=== PATIENT | male | born 1985 | race Hispanic/Latino ===

== ENCOUNTER 2020-07-02 00:06 | Emergency (ER) | payer SELFPAY ==
--- NOTE | ~2020-07-02 | CT_ITS ---
EXAMINATION: CT brain wo con DATE: 07/02/2020 02:01 INDICATION: Headache. Left posterior scalp swelling. TECHNIQUE: Computed tomography (CT) of the head was performed without intravenous contrast. The mA wa s adjusted according to patient size. Iterative reconstruction technique was employed. The dose-lengt h product was 605.33 mGy-cm. COMPARISON: None FINDINGS: There is no intracranial hemorrhage, acute infarction, or abnormal intracranial mass lesion . The ventricles are normal in size. There is mild mucosal thickening in the paranasal sinuses. The m astoid air cells are normal. There is a left posterior scalp soft tissue swelling. IMPRESSION: 1. Normal brain. Reviewed, dictated and finalized at location A. IMPRESSION: 1. Normal brain.
[2020-07-02 00:11] VITALS: BP 165/103; PULSE 72; RESP 20; TEMP 36.4; O2SAT 99
[2020-07-02] MEDS: ONDANSETRON INJ 4 MG/2 ML VIAL IV PUSH (01:01)
[2020-07-02] MEDS: KETOROLAC 30 MG/ML VIAL (*BKC) IV PUSH (01:01)
[2020-07-02] MEDS: SODIUM CHLORIDE 0.9% IV 1,000 ML 999 ML IV CONT ×3 (01:01→04:45)
[2020-07-02 01:02] LABS: Glucose Point of Care > 500 (65-105)
[2020-07-02 01:05] LABS: Basophils Percent Auto 0.5 % (0.2-1.2); Eosinophils Absolute Auto 0.1 K/mm3 (0-0.3); Eosinophils Percent Auto 1.1 % (0-4.4); Hematocrit 42.3 % (42.0-52.0); Hemoglobin 14.2 g/dL (14.0-18.0); Immature Granulocyte Absolute 0.02 K/mm3 (0.00-0.031); Immature Granulocyte Percent A 0.2 % (0-0.5); Lymphocytes Absolute Auto 2.54 K/mm3 (0.9-3.2); Lymphocytes Percent Auto 30.2 % (18.3-44.2); Mean Corpuscular HGB Conc 33.6 g/dl (32-36); Mean Corpuscular Hemoglobin 27.7 pg (26-34); Mean Corpuscular Volume 82.6 fl (80-100); Mean Platelet Volume 12.9 fl (7.4-10.4); Monocytes Absolute Auto 0.6 K/mm3 (0.1-0.6); Monocytes Percent Auto 7.1 % (2.6-8.5); Neutrophils Absolute Auto 5.1 K/mm3 (1.3-6.7); Neutrophils Percent Auto 60.9 % (45.5-73.1); Platelet Count Result 217 k/mm3 (150-375); Red Blood Count 5.12 M/mm3 (4.6-6.20); Red Cell Distribution Width 11.7 % (11.5-14.5); White Blood Count 8.4 K/mm3 (4.5-10.0)
--- NOTE | 2020-07-02 01:06 | ED.HA ---
HPI - Headache General Chief Complaint: Headache Stated Complaint: Multiple complaints Time Seen by Provider: 07/02/20 00:19 Source: patient Mode of arrival: ambulatory Limitations: language barrier (I used video flight control manager ) History of Present Illness HPI Narrative: This patient is a 34 year old male who presents for evaluation for left posterior headache. He states he has noticed for 2 days there is lump on the left posterior scalp. He reports he has havin so much pain he is having nausea and vomiting. THis area of swelling will intermittent decrease in size. He denies trauma at the location. He denies fever, chills, visual changed, chest pain or abdominal pain. He took tylenol 1 hour ago and it did not help his pain. Location: left Pain scale (0-10): 10 Related Data Allergies Allergy/AdvReac Type Severity Reaction Status Date / Time No Known Allergies Allergy Verified 07/02/20 00:32 Review of Systems Review of Systems: All systems reviewed & are unremarkable except as noted in HPI and below Constitutional: Constitutional: Denies chills and Denies fever(s) Cardiovascular: Cardiovascular: Denies chest pain Respiratory: Respiratory: Denies cough and Denies dyspnea Gastrointestinal: Gastrointestinal: Denies abdominal pain, Reports nausea and Reports vomiting Neurologic: Reports headache(s) [facility] Past Medical History Medical History (Updated 07/02/20 @ 06:04 by Vanessa Riojas MD) Diabetes mellitus Surgical History Surgical History (Updated 07/02/20 @ 01:07 by Vanessa Riojas MD) No significant past surgical history Social History Social History (Updated 07/02/20 @ 01:07 by Vanessa Riojas MD) Smoking status: Never smoker Alcohol intake: never Exam Narrative: Exam Narrative: GENERAL: Well-appearing, well-nourished, and in no acute distress. HEAD: atraumatic, mild tenderness to left occiput, no erythema, no redness EYES: PERRLA and EOMI, conjunctiva clear without discharge EARS: TM's clear bilaterally without erythema or dullness NOSE: Nares clear, no rhinorrhea or epistaxis THROAT:Mucous membranes moist, Oropharynx normal without erythema, exudate, peritonsillar swelling or fluctuance NECK: Supple, without lymphadenopathy or mass RESPIRATORY: No respiratory distress, Airway patent, Respirations non-labored, Clear to auscultation without rales, rhonchi or wheeze HEART: Regular rate and rhythm. No murmur heard. Normal peripheral pulses. ABDOMEN: Soft, nontender, nondistended, normal active bowel sounds. No masses. No rebound or guarding, No organomegaly. EXTREMITIES: No edema, normal strength with full range of motion. SKIN: Warm, dry, normal color without rash NEURO: Alert and oriented x3. CN 2-12 grossly intact. No focal deficits. PSYCH: Normal mood and affect. Course Reevaluation(s) Reevaluation #1: Patient states his swelling has resolved in head. He feels better. Date: 07/02/20 Time: 03:34 Reevaluation #2: Patient has no pain or complaints. His BS has decreased. He states he takes insulin but he ran out and he has a prescription for his insulin this morning. HE has no AGAP and he is not acidotic so no DKA. His headache has resolved. I stressed that he will need to make sure he picks up his prescriptions. Date: 07/02/20 Time: 05:58 Vital Signs Vital signs: Vital Signs Temperature 97.5 F L 07/02/20 00:11 Pulse Rate 72 07/02/20 00:11 Respiratory Rate 20 07/02/20 00:11 Blood Pressure 165/103 H 07/02/20 00:11 Pulse Oximetry 99 07/02/20 00:11 Temperature 97.5 F L 07/02/20 00:11 Pulse Rate 73 07/02/20 06:08 Respiratory Rate 17 07/02/20 06:08 Blood Pressure 132/82 07/02/20 06:08 Pulse Oximetry 95 07/02/20 06:08 MDM - Headache Lab Data Attestation: I reviewed the patient's lab results. Result diagrams: 07/02/20 00:58 07/02/20 04:15 Labs: Lab Results 07/02/20 07/02/20 07/02/20 Range/Units 00:54 0
[2020-07-02 01:22] LABS: Alveolar/Arterial O2 Gradient 35.2 mmHg; Base Excess ABG -2.6 mEq/l (+/-2.0); Carboxyhemoglobin 0.6 % THb (0-2.0); Fractional Inspired Oxygen 21 %; HCO3 ABG 22.8 mEq/l (22.0-26.0); Methemoglobin ABG 0.2 %THb (0-1.5); Oxygen Content ABG 17.7 %vol (16.0-22.0); Oxygen Saturation ABG 91.7 % (95.0-100.0); Oxyhemoglobin 90.7 % THb (90.0-100.0); PCO2 ABG 41.9 mmHg (35.0-45.0); PO2 ABG 64.4 mmHg (80.0-100.0); PO2 FiO2 Ratio Arterial Blood 3.07 %; Reduced Hemoglobin 8.5 %THb (0-5.0); Total Hemoglobin 13.9 g/dL (12.0-18.0); pH ABG 7.354 (7.350-7.450)
[2020-07-02 01:23] LABS: Device ROOM AIR; Modified Allen's Test Pass; Site Drawn LEFT RADIAL
[2020-07-02 01:36] LABS: Add Urine Microscopic? YES; Appearance Urine Clear (Clear); Bilirubin Urine Negative (Negative); Blood Urine Negative (Negative); Color Urine Colorless (Yellow); Glucose Urine UA 3+ mg/dL (Negative); Ketones Urine 1+ mg/dL (Negative); Leukocyte Esterase Ur Negative LEU/UL (Negative); Nitrate Urine Negative (Negative); Protein Urine Negative (Negative); RBC Urine 0-2 /hpf (0-2); Specific Grav Ur 1.026 (1.001-1.035); Urobilinogen Urine Negative mg/dL (<2.0); WBC Urine 0-3 /hpf
[2020-07-02 01:43] LABS: Beta-Hydroxybutyrate/Acetoacetate 2.46 mmol/L (0.02-0.27)
[2020-07-02 02:01] LABS: Alanine Aminotransferase 21 U/L (4-50); Albumin Level 4.2 g/dL (3.5-5.1); Alkaline Phosphatase 227 U/L (38-126); Anion Gap 13 mmol/L (8-16); Aspartate Amino Transferase 27 U/L (17-59); Bilirubin,Total 0.3 mg/dL (0.2-1.3); Blood Urea Nitrogen 26 mg/dL (9-20); CRP 0.9 mg/dL (<1.0); Carbon Dioxide 22 mmol/L (22-30); Chloride 91 mmol/L (98-107); Estimated Glomerular Filt Rate > 60; Glucose 709 mg/dL (75-110); Potassium 4.9 mmol/L (3.4-5.0); Sodium 126 mmol/L (137-145)
[2020-07-02] MEDS: INSULIN HUMAN REGULAR (*BKC) 100 UNITS/ML 10 UNITS IV PUSH (02:17)
[2020-07-02 03:11] LABS: Glucose Point of Care 434 (65-105)
[2020-07-02 03:18] VITALS: BP 141/92; PULSE 79; RESP 16; O2SAT 99
[2020-07-02 04:12] LABS: Glucose Point of Care > 500 (65-105)
[2020-07-02 04:32] LABS: Anion Gap 10 mmol/L (8-16); Blood Urea Nitrogen 21 mg/dL (9-20); Calcium 8.4 mg/dL (8.4-10.2); Carbon Dioxide 21 mmol/L (22-30); Chloride 99 mmol/L (98-107); Estimated Glomerular Filt Rate > 60; Glucose 475 mg/dL (75-110); Potassium 4.3 mmol/L (3.4-5.0); Sodium 130 mmol/L (137-145)
[2020-07-02] MEDS: INSULIN HUMAN REGULAR (*BKC) 100 UNITS/ML 10 UNITS SUB-Q (04:45)
[2020-07-02 05:30] VITALS: BP 143/98; PULSE 69; RESP 14; O2SAT 100
[2020-07-02 05:52] LABS: Glucose Point of Care 401 (65-105)
[2020-07-02] MEDS: metFORMIN HCL 500 MG TABLET 1000 MG PO (06:00)
[2020-07-02] MEDS: INSULIN HUMAN REGULAR (*BKC) 100 UNITS/ML 6 UNITS SUB-Q (06:00)
[2020-07-02 06:08] VITALS: BP 132/82; PULSE 73; RESP 17; O2SAT 95
== END 2020-07-02 06:21 | disposition home or self-care (01) ==
PROVIDERS: Emergency Provider General Practice
DX: E11.65 Type 2 diabetes mellitus with hyperglycemia (principal); E86.0 Dehydration; R51 Headache
CPT/HCPCS: 36415; 36600; 70450; 80048; 80053; 81001; 82010; 82375; 82805; 82948; 83050; 85025; 86140; 96361; 96374; 96375; 99284; A9270; J1815; J1885; J2405; J7030

== ENCOUNTER 2021-01-20 20:32 | Emergency (ER) | payer SELFPAY ==
--- NOTE | ~2021-01-20 | XR_ITS ---
EXAMINATION: XR chest 2V 01/20/2021 21:15 INDICATION: Chest pain PROCEDURE: 2 view chest COMPARISON: No prior studies for comparison. FINDINGS: There is right basilar atelectasis. No focal pneumonia, edema. The cardiomediastinal silhou ette is within normal limits. There are no pleural effusions. There is no pneumothorax suspected. IMPRESSION: 1: Right basilar atelectasis. Reviewed, dictated and finalized at location A. ING ROLL OPERATOR
--- NOTE | 2021-01-20 20:35 | ED.CHESTPAIN ---
HPI - Chest Pain General Chief Complaint: Chest Pain Stated Complaint: Chest Pain History of Present Illness HPI narrative: 35 yo male presents to the ED for chest pain. He has had left sided chest pain for the past 30 minutes. Started after an argument with his . Associated with SOB. He reports that he had an IN 1 month ago. After speaking to him I do nt believe that this is likely true. He did not have a cardiac catheterization. And he did not have any new medications started. He was not even given followup with a forensic analyst. Related Data Allergies Allergy/AdvReac Type Severity Reaction Status Date / Time No Known Allergies Allergy Verified 07/02/20 00:32 Review of Systems Review of Systems: All systems reviewed & are unremarkable except as noted in HPI and below Constitutional: Constitutional: Denies chills and Denies fever(s) Cardiovascular: Cardiovascular: Reports chest pain Respiratory: Respiratory: Reports dyspnea Gastrointestinal: Gastrointestinal: Denies abdominal pain and Denies nausea Neurologic: Denies dizziness and Denies weakness [facility] Past Medical History Medical History (Updated 01/21/21 @ 01:08 by Issac Cam MD) Diabetes mellitus Surgical History Surgical History (Updated 07/02/20 @ 01:07 by Vansesa Riojas MD) No significant past surgical history Social History Social History (Updated 07/02/20 @ 01:07 by Vanessa Riojas MD) Smoking status: Never smoker Alcohol intake: never Exam Const: General: no acute distress Orientation/consciousness: patient oriented x3 HENMT: Head: normal to inspection Chest: Chest palpation & inspection: no tenderness Resp: Effort & Inspection: normal respiratory effort Auscultation: clear to auscultation bilaterally, no rales, no rhonchi and no wheezes Cardio: Jugular venous distension: no JVD Rate: regular rate Rhythm: regular rhythm Heart sounds: no murmurs GI: Inspection: non-distended GI Palp: Yes Soft to palpation and No Tenderness to palpation present (GI) Skin: General skin exam: normal color Neuro: General: patient oriented x3, moves all extremities, no focal motor deficits and CN's II-XI intact bilaterally Speech: normal speech Extrem: General: no edema Psych: Appearance: well kempt Affect: normal affect Course Vital Signs Vital signs: Vital Signs Temperature 36.7 C 01/20/21 20:41 Pulse Rate 78 01/20/21 20:41 Respiratory Rate 18 01/20/21 20:41 Blood Pressure 140/95 H 01/20/21 20:41 Pulse Oximetry 97 01/20/21 20:41 Temperature 36.7 C 01/20/21 20:41 Pulse Rate 77 01/21/21 01:30 Respiratory Rate 16 01/21/21 01:30 Blood Pressure 157/117 H 01/21/21 01:30 Pulse Oximetry 99 01/21/21 01:30 MDM - Chest Pain MDM Narrative Medical decision making narrative: EKG perfectly normal. Troponin negative x2. Differential Diagnosis Differential diagnosis: Likely unstable angina pectoris, atypical chest pain, st elevation myocardial infarction and other (anxiety) Medical Records Data Attestation: I reviewed the patient's medical records. Lab Data Attestation: I reviewed the patient's lab results. Result diagrams: 01/20/21 21:28 01/20/21 21:28 Labs: Lab Results 01/20/21 01/20/21 01/20/21 Range/Units 21:28 21:28 21:28 WBC 7.8 (4.5-10.0) K/mm3 RBC 4.61 (4.6-6.20) M/mm3 Hgb 12.5 L (14.0-18.0) g/dL Hct 38.7 L (42.0-52.0) % MCV 83.9 (80-100) fl MCH 27.1 (26-34) pg MCHC 32.3 (32-36) g/dl RDW 12.5 (11.5-14.5) % Plt Count 227 (150-375) k/mm3 MPV 11.9 H (7.4-10.4) fl Immature Gran % (Auto) 0.1 (0-0.5) % Neut % (Auto) 53.0 (45.5-73.1) % Lymph % (Auto) 36.2 (18.3-44.2) % [place] % (Auto) 8.5 (2.6-8.5) % Eos % (Auto) 1.4 (0-4.4) % Baso % (Auto) 0.8 (0.2-1.2) % Lymph # (Auto) 2.84 (0.9-3.2) K/mm3 [place] # (Auto) 0.7 H (0.1-0.6) K/mm3 Eos # (Auto) 0.1 (0-0.3) K/m
[2021-01-20 20:41] VITALS: BP 140/95; PULSE 78; RESP 18; TEMP 36.7; O2SAT 97
--- NOTE | 2021-01-20 20:48 | ECG_ITS ---
SINUS RHYTHM NORMAL ECG Electronically Signed On 01-21-2021 7:09:49 TILE DESIGNER by Vu ROMAN
[2021-01-20 21:35] LABS: Basophils Absolute Auto 0.1 K/mm3 (0.0-0.1); Basophils Percent Auto 0.8 % (0.2-1.2); Eosinophils Absolute Auto 0.1 K/mm3 (0-0.3); Eosinophils Percent Auto 1.4 % (0-4.4); Hematocrit 38.7 % (42.0-52.0); Hemoglobin 12.5 g/dL (14.0-18.0); Immature Granulocyte Absolute 0.01 K/mm3 (0.00-0.031); Immature Granulocyte Percent A 0.1 % (0-0.5); Lymphocytes Absolute Auto 2.84 K/mm3 (0.9-3.2); Lymphocytes Percent Auto 36.2 % (18.3-44.2); Mean Corpuscular HGB Conc 32.3 g/dl (32-36); Mean Corpuscular Hemoglobin 27.1 pg (26-34); Mean Corpuscular Volume 83.9 fl (80-100); Mean Platelet Volume 11.9 fl (7.4-10.4); Monocytes Absolute Auto 0.7 K/mm3 (0.1-0.6); Monocytes Percent Auto 8.5 % (2.6-8.5); Neutrophils Absolute Auto 4.2 K/mm3 (1.3-6.7); Platelet Count Result 227 k/mm3 (150-375); Red Blood Count 4.61 M/mm3 (4.6-6.20); Red Cell Distribution Width 12.5 % (11.5-14.5); White Blood Count 7.8 K/mm3 (4.5-10.0)
[2021-01-20 21:44] LABS: INR 0.9; Prothrombin Time 12.4 Seconds (11.1-14.7)
[2021-01-20 21:45] LABS: Partial Thromboplastin Time 25.7 SECONDS (22.3-36.8)
[2021-01-20 21:48] LABS: Anion Gap 5 mmol/L (8-16); Blood Urea Nitrogen 16 mg/dL (9-20); Calcium 8.7 mg/dL (8.4-10.2); Carbon Dioxide 29 mmol/L (22-30); Chloride 102 mmol/L (98-107); Estimated CRCL calculation 177 ml/min; Estimated Glomerular Filt Rate > 60; Glucose 343 mg/dL (75-110); Potassium 4.1 mmol/L (3.4-5.0); Sodium 136 mmol/L (137-145)
[2021-01-20 22:00] LABS: Troponin I < 0.012 ng/mL (0.000-0.034)
[2021-01-20] MEDS: SODIUM CHLORIDE 0.9% IV 1,000 ML 999 ML IV CONT (22:23)
[2021-01-20 22:25] VITALS: BP 132/76; PULSE 78; RESP 18; O2SAT 99
[2021-01-20 23:00] VITALS: BP 161/101; PULSE 70; RESP 19; O2SAT 97
--- NOTE | 2021-01-20 23:00 | PC.NURSE ---
assumed care of pt. at this time. report from RUSS Montague
[2021-01-21] VITALS: BP 167/113; PULSE 71; RESP 19; O2SAT 98
[2021-01-21 00:59] LABS: Troponin I < 0.012 ng/mL (0.000-0.034)
[2021-01-21 01:00] VITALS: BP 168/119; PULSE 72; RESP 17; O2SAT 99
[2021-01-21 01:30] VITALS: BP 157/117; PULSE 77; RESP 16; O2SAT 99
== END 2021-01-21 01:30 | disposition home or self-care (01) ==
PROVIDERS: Emergency Provider Emergency Medicine
DX: R07.9 Chest pain, unspecified (principal); E11.9 Type 2 diabetes mellitus without complications
CPT/HCPCS: 36415; 71046; 80048; 84484; 85025; 85610; 85730; 93005; 96360; 99284; J7030